=== PATIENT | female | born 1935 | race Asian ===

== ENCOUNTER → 2024-12-18 | Outpatient (CLI) | payer MEDICARE, MEDICAID, SELFPAY ==
--- NOTE | 2024-12-18 07:00 | EKG_ITS ---
[facility] Test Date: 2024-12-18 Pat Name: GORAN UGSTAFSON Department: Room: - Gender: Female Manager Er: HARRISON : 1935 Requested By: Leigh Olsen Order Number: [id number] Reading MD: Leigh Olsen Measurements Intervals [place] Rate: 60 P: 111 AL: 254 QRS: 32 QRSD: 83 T: 83 QT: 392 QTc: 392 Interpretive Statements ELECTRONIC ATRIAL PACEMAKER MARKED ST ELEVATION, CONSIDER INFERIOR INJURY ACUTE CO Compared to ECG 03/27/2023 09:12:17 ST (T wave) deviation now present Myocardial infarct finding now present /[id number].pdf
[2024-12-18 12:15] LABS: Basophils # (Auto) 0.1 Thou/mm3 (0.0-0.2); Basophils % (Auto) 1 % (0-2.5); Eosinophils # (Auto) 0.3 Thou/mm3 (0.0-0.5); Eosinophils % (Auto) 4 % (0-10); Hematocrit 32.8 % (36.0-46.0); Immature Granulocytes % (Auto) 0 % (0-0); Immature Granulocytes Auto 0.02 Thou/mm3 (0.00-0.00); Lymphocytes # (Auto) 1.4 Thou/mm3 (1.0-4.8); Lymphocytes % (Auto) 20 % (10-50); Mean Corpuscular HGB Conc 33.5 g/dl (31.0-37.0); Mean Corpuscular Volume 99 fL (80-100); Monocytes # (Auto) 0.8 Thou/mm3 (0.0-0.8); Monocytes % (Auto) 11 % (0-12); Neutrophils # (Auto) 4.6 Thou/mm3 (1.8-7.7); Neutrophils % (Auto) 64 % (37-80); Nucleated Red Blood Cell % 0 /100 WBC (0); Platelet Count 209 Thou/mm3 (140-440); RDW Standard Deviation 47.2 fL (36.4-46.3); Red Blood Count 3.33 Miln/mm3 (4.00-5.20); White Blood Count 7.2 Thou/mm3 (3.6-11.0)
[2024-12-18 12:24] LABS: Anion Gap 11 (7-16); BUN/Creatinine Ratio 19 Ratio (12-20); Blood Urea Nitrogen 32 mg/dL (9-23); Calcium 9.2 mg/dL (8.3-10.6); Carbon Dioxide 20.8 mMol/L (20.0-31.0); Chloride 106 mMol/L (98-107); Creatinine (Component) 1.7 mg/dL (0.6-1.3); Glucose 84 mg/dL (74-106); Osmolality,Calculated 281 (275-295); Potassium 4.2 mMol/L (3.4-5.1); Sodium 138 mMol/L (136-145); eGFR 28 See Note
[2024-12-18 12:26] LABS: Partial Thromboplastin Time 25.9 Seconds (22.0-36.0); Prothrombin Time 10.9 Seconds (9.0-12.2)
== END | disposition home or self-care (01) ==
LOC: SLAB 12-25 07:56
PROVIDERS: Referring Provider Internal Medicine; Visit Provider Internal Medicine
DX: I25.10 Atherosclerotic heart disease of native coronary artery without angina pectoris (principal); I48.91 Unspecified atrial fibrillation
CPT/HCPCS: 36415; 80048; 85025; 85610; 85730; 93005

== ENCOUNTER 2025-01-02 06:43 | Day surgery (SDC) | payer MEDICARE, MEDICAID, SELFPAY ==
[2024-12-31 14:59] VITALS: BMI 22.4
--- NOTE | 2025-01-01 07:00 | EKG_ITS ---
[facility] Test Date: 2025-01-01 Pat Name: GORAN GUSTAFSON Department: Room: - Gender: Female Test Engineer: ABBI : 1935 Requested By: Leigh Olsen Order Number: [id number] Reading MD: Leigh Olsen Measurements Intervals [place] Rate: 60 P: 117 NE: 289 QRS: 81 QRSD: 82 T: 89 QT: 376 QTc: 376 Interpretive Statements ELECTRONIC ATRIAL PACEMAKER MODERATE ST DEPRESSION [0.05+ mV ST DEPRESSION] Compared to ECG 12/18/2024 10:20:12 Myocardial infarct finding no longer present ST (T wave) deviation still present /[id number].pdf
[2025-01-01 11:19] LABS: Basophils # (Auto) 0.1 Thou/mm3 (0.0-0.2); Basophils % (Auto) 1 % (0-2.5); Eosinophils # (Auto) 0.2 Thou/mm3 (0.0-0.5); Eosinophils % (Auto) 3 % (0-10); Hematocrit 30.8 % (36.0-46.0); Hemoglobin 10.3 g/dL (12.0-16.0); Immature Granulocytes % (Auto) 0 % (0-0); Immature Granulocytes Auto 0.02 Thou/mm3 (0.00-0.00); Lymphocytes # (Auto) 1.6 Thou/mm3 (1.0-4.8); Lymphocytes % (Auto) 22 % (10-50); Mean Corpuscular HGB Conc 33.4 g/dl (31.0-37.0); Mean Corpuscular Hemoglobin 32.8 pg (25.0-35.0); Mean Corpuscular Volume 98 fL (80-100); Monocytes # (Auto) 0.8 Thou/mm3 (0.0-0.8); Monocytes % (Auto) 10 % (0-12); Neutrophils # (Auto) 4.8 Thou/mm3 (1.8-7.7); Neutrophils % (Auto) 64 % (37-80); Nucleated Red Blood Cell % 0 /100 WBC (0); Platelet Count 205 Thou/mm3 (140-440); RDW Standard Deviation 47.6 fL (36.4-46.3); Red Blood Count 3.14 Miln/mm3 (4.00-5.20); White Blood Count 7.5 Thou/mm3 (3.6-11.0)
[2025-01-01 11:26] LABS: Partial Thromboplastin Time 25.7 Seconds (22.0-36.0); Prothrombin Time 10.9 Seconds (9.0-12.2)
[2025-01-01 11:38] LABS: Anion Gap 10 (7-16); BUN/Creatinine Ratio 16 Ratio (12-20); Blood Urea Nitrogen 28 mg/dL (9-23); Calcium 8.9 mg/dL (8.3-10.6); Carbon Dioxide 20.1 mMol/L (20.0-31.0); Chloride 109 mMol/L (98-107); Creatinine (Component) 1.8 mg/dL (0.6-1.3); Glucose 85 mg/dL (74-106); Osmolality,Calculated 282 (275-295); Potassium 4.5 mMol/L (3.4-5.1); Sodium 139 mMol/L (136-145); eGFR 27 See Note
[2025-01-02] VITALS (14 sets, daily range): BP systolic 139–190; BP diastolic 62–89; PULSE 60–76; RESP 16–20; TEMP 36.4–37; O2SAT 97–100
--- NOTE | 2025-01-02 08:12 | ESOP_ITS ---
Cardiac Cath Procedure Procedure Narrative Procedure date 01/02/2025 Title of the procedure Permanent pacemaker generator change Indication for the procedure 89-year-old female with past medical history of heart block bradycardia Patient had a prior permanent pacemaker placed Pacemaker has reached elective replacement interval Therefore she was recommended to undergo pacemaker generator change Procedure This is done in the cardiac lab and attempt electrocardiographic monitoring intermittent blood pressure monitoring under 1% lidocaine anesthesia previously placed pacemaker pocket was incised and the original pacemaker was removed Explanted pacemaker [employer] model #[id number] Subsequently oriented leads were connected to the new device [employer] serial #[id number] Atrial lead [employer] serial #[id number] P wave was 4.3 mV impedance was 779 ohms threshold was 0.9 V at 0.4 ms Ventricular lead [employer] serial #[id number] R wave was 17.1 mV threshold was 0.9 V at 0.4 ms impedance of 709 ohms Both leads were connected to the new device serial #[id number] Subsequently the generator was placed in the pocket Subcutaneous tissue was sutured with 2-0 Vicryl skin was secured with Dermabond patient tolerated the whole procedure well there was no complication
--- NOTE | 2025-01-02 08:15 | PC.NURSE ---
0815 patient is awake, alert, breathing unlabored s/p pacemaker battery change out by dr Olsen, dressing to left chest dry with no bleeding, report received from Avelino INFANTE, patient to recovery for 3hrs.
[2025-01-02] MEDS: hydrALAZINE INJ 20 MG/ML VIAL 10 MG IV (10:28)
--- NOTE | 2025-01-02 16:09 | PC.NURSE ---
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 Patient discharged home in wheelchair with all belongings.
== END 2025-01-02 11:32 | disposition home or self-care (01) ==
PROVIDERS: PCP Family Medicine; Referring Provider Internal Medicine; Visit Provider Internal Medicine
PROC: (CPT 33228; principal; 2025-01-02 07:30)
DX: Z45.010 Encounter for checking and testing of cardiac pacemaker pulse generator [battery] (principal); I25.10 Atherosclerotic heart disease of native coronary artery without angina pectoris; Z01.810 Encounter for preprocedural cardiovascular examination; I10 Essential (primary) hypertension; E78.5 Hyperlipidemia, unspecified; Z98.61 Coronary angioplasty status
CPT/HCPCS: 33228; 36415; 80048; 85025; 85610; 85730; 93005; 99152; A4649; C1785; J0171; J0360; J0461; J0690; J2250; J2310; J2371; J3010; J3490

== ENCOUNTER → 2025-09-15 | Outpatient (CLI) | payer MEDICARE, MEDICAID, SELFPAY ==
[2025-09-15 11:03] LABS: INR 1.0 (0.9-1.3); Partial Thromboplastin Time 25.6 Seconds (22.0-36.0); Prothrombin Time 10.6 Seconds (9.0-12.2)
[2025-09-15 11:11] LABS: Anion Gap 12 (7-16); BUN/Creatinine Ratio 18 Ratio (12-20); Blood Urea Nitrogen 35 mg/dL (9-23); Calcium 8.8 mg/dL (8.3-10.6); Carbon Dioxide 19.2 mMol/L (20.0-31.0); Chloride 108 mMol/L (98-107); Creatinine (Component) 2.0 mg/dL (0.6-1.3); Glucose 89 mg/dL (74-106); Osmolality,Calculated 284 (275-295); Potassium 4.9 mMol/L (3.4-5.1); Sodium 139 mMol/L (136-145); eGFR 23 See Note
[2025-09-15 11:20] LABS: Basophils # (Auto) 0.1 Thou/mm3 (0.0-0.2); Basophils % (Auto) 1 % (0-2.5); Eosinophils # (Auto) 0.1 Thou/mm3 (0.0-0.5); Eosinophils % (Auto) 2 % (0-10); Hematocrit 31.0 % (36.0-46.0); Hemoglobin 10.4 g/dL (12.0-16.0); Immature Granulocytes Auto 0.02 Thou/mm3 (0.00-0.00); Lymphocytes # (Auto) 1.6 Thou/mm3 (1.0-4.8); Lymphocytes % (Auto) 25 % (10-50); Mean Corpuscular HGB Conc 33.5 g/dl (31.0-37.0); Mean Corpuscular Hemoglobin 34.9 pg (25.0-35.0); Mean Corpuscular Volume 104 fL (80-100); Monocytes # (Auto) 0.8 Thou/mm3 (0.0-0.8); Monocytes % (Auto) 13 % (0-12); Neutrophils # (Auto) 3.9 Thou/mm3 (1.8-7.7); Neutrophils % (Auto) 59 % (37-80); Nucleated Red Blood Cell # 0.00 Thou/mm3 (0.00-0.00); Nucleated Red Blood Cell % 0 /100 WBC (0); Platelet Count 179 Thou/mm3 (140-440); RDW Standard Deviation 45.9 fL (36.4-46.3); Red Blood Count 2.98 Miln/mm3 (4.00-5.20); White Blood Count 6.6 Thou/mm3 (3.6-11.0)
== END | disposition home or self-care (01) ==
LOC: COPL 10:03
PROVIDERS: PCP Family Medicine; Referring Provider Internal Medicine; Visit Provider Internal Medicine
DX: I25.10 Atherosclerotic heart disease of native coronary artery without angina pectoris (principal); I48.91 Unspecified atrial fibrillation
CPT/HCPCS: 36415; 80048; 85025; 85610; 85730